=== PATIENT | female | born 1945 | race Caucasian/White ===

== ENCOUNTER 2019-12-04 06:55 | Inpatient (IN) | payer MEDICARE, OTHER ==
[~2019-12-04] VITALS: Ht 165.1 cm; Wt 91.2 kg
[~2019-12-04 06:55] MED LIST: ACET250 PO; ACYCLOVIR5 GM TOP; ALBU90OI61 INH; ASCO500 PO; ASPI81CH PO; ATOR20 PO; ATORVASTATIN CA20 MG; ATORVASTATIN CA20 MG PO; B Complex #11 EACH PO; BETA.05TCA TOP; CELE100 PO; CENTRUM SILVER1 EAC2 PO; CEVIMELINE HCL30 MG PO; CLOB.05TC TOP; EUTHYROX125 MCG PO; Evoxac30 MG PO; FERR325 PO; FURO20 PO; GABA300; HYDR-86; Hydrocodone-Ap1 EA20; LISHYD1012 PO; LISI10 PO; METF500C PO; MONTELUKAST SOD10 MG PO; MULVITMIND PO; Magnesium500 MG PO; OMEP20ER PO; OMEP40CA12; OMEPRAZOLE MAGN20 MG PO; OXAPROZIN PO; POTA10T PO; POTASSIUM GLUCONATE PO; PRAHYD1AE TOP; PRAMIPEXOLE DI1.5 MG PO; Proctosol HC30 GM TOP; Synthroid137 MCG PO; TIZANIDINE HCL4 MG PO; TRAZ100 PO; TREXALL5 MG PO; UBID100 PO; VALA500 PO; VITAMIN B125000 MC1 PO; VITAMIN D22000 UNIT PO; VITAMIN D35000 UNI1 PO; Vitamin D2000 UNIT PO; XARELTO15 MG PO; XARELTO20 MG PO; ZESTORETIC 20-121 EA
--- NOTE | 2019-12-04 08:23 | NUR ---
Ambulatory in Day Surgery. Surgical site prepped with 2% Chlorhexidine cloth wipe. History, Chart, Medications and Allergies reviewed before start of procedure. Lungs clear T/O to Auscultation. Patient confirms NPO status and agrees with scheduled surgery. Patient reports completing Chlorhexadine shower X2 prior to admission to hospital. Pre-Op teaching done. Pt verbalizes understanding.
--- NOTE | 2019-12-04 11:46 | NUR ---
12/04/[address] UNABLE TO COMPLETE PROCEDURE LAPAROSCOPICALLY, CONVERTED TO OPEN RIGHT COLECTOMY.
--- NOTE | 2019-12-04 18:35 | NUR ---
SHIFT SUMMARY PT A&OX4, VSS, 2LNC, CPAP AT BEDSIDE. S/P COLECTOMY, JOHN DRY/INTACT, WNL, PERAZA PATENT & DRAINING YELLOW URINE, STAT LOCK ON, OFF FLOOR. YESENIA ICE CHIPS, DENIES N&V. PAIN: 25 MCG FENT Q1.5-2H. AT BEDSIDE. WILL REPORT TO ONCOMING SESAR RN.
--- NOTE | 2019-12-05 04:12 | NUR ---
TACTICAL DECEPTION PLANS OFFICER SUMMARY Pleasantly confused patient with upper abdominal/epigastic pain not resolving with intermittant fentanyl injections. RISK LEAD started per Dr's order, and patient complained that she was not getting enough pain relief. However, the patients blood pressure dropped to 85/57. health underwriter informed, and warm blankets placed over abd for comfort. LR increased for 2 hours to 200 ml/hr. BP increased to 104/85. Patient rested more comfortably after that. Needed reminding frequently which button was to call staff, and which was RISK LEAD. No change in abdominal dressing or JOHN. Site remains externally dry with Old serosanguinous drainage just over umbilicus. Voiding Clear yellow urine per solorzano catheter.
[2019-12-05 05:08] LABS: BASOPHILS ABSOLUTE AUTO 0.02 K/mm3 (0.00-0.23); BASOPHILS PERCENT AUTO 0 % (0-2); EOSINOPHILS ABSOLUTE AUTO 0.01 K/mm3 (0.00-0.68); EOSINOPHILS PERCENT AUTO 0 % (0-6); Hematocrit 33.1 % (33.0-51.0); IMMATURE GRAN ABSOLUTE AUTO 0.03 K/mm3 (0.00-0.10); IMMATURE GRAN PERCENT AUTO 0 % (0-1); LYMPHOCYTES ABSOLUTE AUTO 1.84 K/mm3 (0.84-5.20); LYMPHOCYTES PERCENT AUTO 19 % (21-46); MONOCYTES ABSOLUTE AUTO 0.72 K/mm3 (0.16-1.47); MONOCYTES PERCENT AUTO 7 % (4-13); Mean Corpuscular HGB 27.9 pg (26.0-34.0); Mean Corpuscular HGB Conc 30.2 g/dL (31.5-36.5); Mean Corpuscular Volume 93 fL (80-100); Mean Platelet Volume 9.8 fL (9.1-12.4); NEUTROPHILS ABSOLUTE AUTO 7.29 K/mm3 (1.96-9.15); NEUTROPHILS PERCENT AUTO 74 % (41-73); Platelet Count 191 K/mm3 (150-400); RDW Coefficient Variation 14.6 % (11.7-14.2); RDW Standard Deviation 49.4 fL (35.1-46.3); Red Blood Cell Count 3.58 M/mm3 (3.80-5.20); White Blood Cell Count 9.91 K/mm3 (4.00-11.30)
[2019-12-05 05:33] LABS: Anion Gap 6 mmol/L (6-16); Blood Urea Nitrogen 11 mg/dL (8-24); Bun/Creatinine Ratio 15.2 (12.0-20.0); CO2, Blood 28 mmol/L (21-32); Calcium, Blood 8.2 mg/dL (8.5-10.1); Chloride, Blood 106 mmol/L (98-108); Creatinine, Blood 0.73 mg/dL (0.40-1.00); Glomerular Filtration Rate >60 (60-); Glucose, Blood 124 mg/dL (70-99); Potassium, Blood 4.3 mmol/L (3.5-5.5); Sodium, Blood 140 mmol/L (136-145)
--- NOTE | 2019-12-05 15:26 | NUR ---
SHIFT SUMMARY PT A&OX4, VSS, 2LNC, BIOX ON. POD1 OPEN COLECTOMY, MIDLINE JOHN DRY/INTACT WNL, EDU TO USE PILLOW FOR SPLINTING ABDOMEN, KPAD IN PLACE. CPAP AT BEDSIDE FOR NOC. STAND PIVOT TO BSC/CHAIR; OOB TO CHAIR T/O SHIFT. VOIDING WELL. TCDB & I.S. EDU & ENC Q1H. YESENIA ICE CHIPS AND POPSICLES, DENIES N&V. PAIN MANAGED WITH DIGITAL EDITOR, PT USES BUTTON WELL; CURRENTLY REPORTS PAIN 4/10 AND TOLERABLE. WILL REPORT TO ONCOMING NOC RN.
--- NOTE | 2019-12-06 04:09 | NUR ---
SHIFT SUMMARY: JASON AROUSES EASILY AND RESPONDS APPROPRIATELY. SHE ELECTED TO SLEEP IN HER CHAIR. SHE DID WEAR HER CPAP DURING THE NIGHT. VSS, NO ACUTE EVENTS OVERNIGHT. SHE REPORTS ADEQUATE PAIN CONTROL WITH THE PULPIT OPERATOR. O2 AT 2 LPM VIA NC. IV FLUIDS INFUSING PER MAR. SHE USES HER CALL LIGHT APPROPRIATELY. SHE IS UP TO THE CHAIR WITH THE CALL LIGHT IN REACH. WILL REPORT TO DAY SHIFT RN.
--- NOTE | 2019-12-06 07:10 | NUR ---
recvd report from previous shift RN Delmy, pt sleeping in chair, in room, call light within reach
--- NOTE | 2019-12-06 11:30 | NUR ---
dr carter roundnawaf on pt; this rn assisted in midline JOHN dressing change WNL
--- NOTE | 2019-12-06 17:00 | NUR ---
friend visiting with pt
--- NOTE | 2019-12-07 05:12 | NUR ---
SHIFT SUMMARY LYING IN CHAIR AT BEDSIDE WITH EYES CLOSED CLOSED. PAIN MANAGED WITH PO PAIN MEDS PER MD ORDERS. INTERMITTENT CONFUSION NOTED. MIDLINE DRESSING AND LAP SITES ARE C/D/I. DENIES PAIN, DISCOMFORT, OR FURTHER NEEDS AT THIS TIME. SAFETY MEASURES IN PLACE. WILL CONTINUE TO MONITOR AND GIVE HAND OFF TO ONCOMING SHIFT USING SBAR DURING BEDSIDE REPORT.
--- NOTE | 2019-12-07 07:00 | NUR ---
RECVD REPORT FROM PREVIOUS SHIFT RN ZACARIAS, PT SITTING UP IN CHAIR, CALL LIGHT WITHIN REACH. A/O X 4, PLEASANT/COOPERATIVE, RATES PAIN AT 4/10
--- NOTE | 2019-12-07 16:40 | NUR ---
shift summary: vss, no acute changes. pt remained a/o x 4, pleasant/cooperative. pt tolerated advancing diet to full liquids with no n/v. Pt rates pain at 3-5/10 with PO medication; ambulating in hallways with her independently, is smiling and cheerful. BM x 2 large, liquid brown stool this shif. Midline incision with JOHN dressing c/d/i. Laparascopic incisions c/d/i.
--- NOTE | 2019-12-08 05:50 | NUR ---
POD 4 S/P OPEN APPY/COLECTOMY. PT VSS T/O NIGHT. JOHN DRESSING INTACT W/NO DRNG; SEAL AND SX INTACT. PT HAD NO C/O N/V, IS PASSING FLATUS. PAIN MGD W/PO PAIN MEDS W/REP RELIEF. PT INDEP IN ROOM, IS USING CALL LIGHT FOR ASSISTANCE. PLAN TO D/C HOME TODAY.
[2019-12-08] MEDS ORDERED: HYDR1TAB94 PO (09:15)
--- NOTE | 2019-12-08 10:12 | NUR ---
discharged to home with / pt ambulating, reports pain controlled, passing flatus. pt verbalizes understanding of how to do dressing change. abd juanpablo intact x3 sites. no redness or drainage at incisions
== END 2019-12-08 10:00 | disposition home or self-care (01) | DRG 330 ==
LOC: ORSCMMR 06:55 → ORD 08:45 → ORSCMMR 08:45 → SURS 13:11 → ORSCMMR 13:11 → SURS 13:50
PROVIDERS: ADMIT Surgery
PROC: 0DTF0ZZ Resection of Right Large Intestine, Open Approach (ICD-10-PCS; principal; 2019-12-04 08:45)
DX: K63.89 Other specified diseases of intestine (principal); K35.20 Acute appendicitis with generalized peritonitis, without abscess; Z86.711 Personal history of pulmonary embolism; I10 Essential (primary) hypertension; E78.5 Hyperlipidemia, unspecified; E03.9 Hypothyroidism, unspecified; K21.9 Gastro-esophageal reflux disease without esophagitis; G47.30 Sleep apnea, unspecified
CPT/HCPCS: 36415; 80048; 85025; 88307; 94660; 94762; A9270; A9270-GY; J0295; J1650; J2250; J2704; J3010; J7120

== ENCOUNTER 2020-01-13 12:44 | Emergency (ER) | payer MEDICARE, OTHER ==
[~2020-01-13] VITALS: Ht 165.1 cm; Wt 87.5 kg
[~2020-01-13 12:44] MED LIST changes: +HYDR1TAB94 PO
[2020-01-13 13:24] LABS: BASOPHILS ABSOLUTE AUTO 0.05 K/mm3 (0.00-0.23); BASOPHILS PERCENT AUTO 1 % (0-2); EOSINOPHILS ABSOLUTE AUTO 0.22 K/mm3 (0.00-0.68); EOSINOPHILS PERCENT AUTO 3 % (0-6); Hematocrit 37.7 % (33.0-51.0); Hemoglobin 11.7 g/dL (11.5-16.0); IMMATURE GRAN ABSOLUTE AUTO 0.02 K/mm3 (0.00-0.10); IMMATURE GRAN PERCENT AUTO 0 % (0-1); LYMPHOCYTES ABSOLUTE AUTO 2.32 K/mm3 (0.84-5.20); LYMPHOCYTES PERCENT AUTO 34 % (21-46); MONOCYTES ABSOLUTE AUTO 0.48 K/mm3 (0.16-1.47); MONOCYTES PERCENT AUTO 7 % (4-13); Mean Corpuscular HGB 28.1 pg (26.0-34.0); Mean Corpuscular Volume 91 fL (80-100); NEUTROPHILS ABSOLUTE AUTO 3.75 K/mm3 (1.96-9.15); NEUTROPHILS PERCENT AUTO 55 % (41-73); Platelet Count 283 K/mm3 (150-400); RDW Coefficient Variation 14.9 % (11.7-14.2); RDW Standard Deviation 49.4 fL (35.1-46.3); Red Blood Cell Count 4.16 M/mm3 (3.80-5.20); White Blood Cell Count 6.84 K/mm3 (4.00-11.30)
[2020-01-13 13:40] LABS: Alanine Aminotransfer (ALT/SGP 22 U/L (12-78); Albumin, Blood 3.5 g/dL (3.4-5.0); Albumin/Globulin Ratio 0.8 (0.8-1.8); Alk Phos 76 U/L (50-136); Anion Gap 5 mmol/L (6-16); Aspartate Aminotrans (AST/SGOT 26 U/L (12-37); Bilirubin, Total 0.3 mg/dL (0.1-1.0); Blood Urea Nitrogen 15 mg/dL (8-24); Bun/Creatinine Ratio 25.6 (12.0-20.0); CO2, Blood 27 mmol/L (21-32); Calcium, Blood 9.2 mg/dL (8.5-10.1); Chloride, Blood 107 mmol/L (98-108); Creatinine, Blood 0.59 mg/dL (0.40-1.00); Globulin, Blood 4.2 g/dL (2.2-4.0); Glomerular Filtration Rate >60 (60-); Glucose, Blood 122 mg/dL (70-99); Potassium, Blood 3.9 mmol/L (3.5-5.5); Sodium, Blood 139 mmol/L (136-145); Total Protein, Blood 7.7 g/dL (6.4-8.2)
[2020-01-13 13:59] LABS: Source, Urine Clean Catch
[2020-01-13 14:01] LABS: Appearance, Urine Clear (Clear); Bilirubin, Urine Neg (Neg); Blood, Urine Neg (Neg); Color, Urine Yellow (P-Yellow); Glucose Qualitative, Urine Neg (Neg); Ketones, Urine Neg (Neg); Leukocyte Esterase, Urine 1+ (Neg); Nitrite, Urine Neg (Neg); Protein, Urine Neg (Neg); Urobilinogen, Urine NORM (Normal)
[2020-01-13 14:11] LABS: Amorphous Light (0-Heavy); Bacteria Few /hpf; Red Blood Cells, Urine Not Seen /hpf (0-2); Squamous Epithelial Cells Few /hpf (Few)
[2020-01-13] MEDS ORDERED: Magnesium Citr296 ML PO (16:37)
== END 2020-01-13 16:45 | disposition home or self-care (01) ==
LOC: ER 12:44
PROVIDERS: Emergency Medicine
DX: K59.00 Constipation, unspecified (principal); E03.9 Hypothyroidism, unspecified; J44.9 Chronic obstructive pulmonary disease, unspecified; Z88.5 Allergy status to narcotic agent; Z91.041 Radiographic dye allergy status; Z79.899 Other long term (current) drug therapy
CPT/HCPCS: 36415; 74176; 80053; 81001; 83690; 85025; 87086; 99284-25

== ENCOUNTER → 2021-01-13 | Outpatient (CLI) | payer MEDICARE, OTHER ==
[~2021-01-13] MED LIST changes: +Magnesium Citr296 ML PO
== END | disposition home or self-care (01) ==
LOC: LAB SHORT 11:32
DX: C44.41 Basal cell carcinoma of skin of scalp and neck (principal)
CPT/HCPCS: 88305

== ENCOUNTER 2021-05-26 10:59 | Day surgery (SDC) | payer MEDICARE, OTHER ==
[~2021-05-26] VITALS: Ht 165.1 cm; Wt 100.1 kg
--- NOTE | 2021-05-26 11:59 | NUR ---
05/26/21 1159 Sujey Dennis 1150 TIME OUT AND SITE CHECK FOR ISB DONE WITH DR MARTINEZ.
--- NOTE | 2021-05-26 12:32 | NUR ---
05/26/21 1232 Felecia Almaraz 1 MG EPI ADDED TO THE FIRST BAG OF LR PER ORDER FOR IRRIGATION.
== END 2021-05-26 14:30 | disposition home or self-care (01) ==
LOC: ORSCSDS 10:59
PROVIDERS: Orthopaedic Surgery
PROC: 0RBK4ZZ Excision of Left Shoulder Joint, Percutaneous Endoscopic Approach (ICD-10-PCS; principal; 2021-05-26 12:30)
DX: M75.42 Impingement syndrome of left shoulder (principal); S46.102A Unspecified injury of muscle, fascia and tendon of long head of biceps, left arm, initial encounter; M19.012 Primary osteoarthritis, left shoulder; I10 Essential (primary) hypertension; G47.33 Obstructive sleep apnea (adult) (pediatric); E03.9 Hypothyroidism, unspecified; M35.00 Sjogren syndrome, unspecified; Z79.899 Other long term (current) drug therapy; E66.01 Morbid (severe) obesity due to excess calories; Z68.36 Body mass index [BMI] 36.0-36.9, adult
CPT/HCPCS: J0171; J0690; J1100; J1885; J2250; J2405; J2704; J3010; J3370; J7050; J7120

== ENCOUNTER 2024-04-22 14:13 | Observation (INO) | payer MEDICARE, OTHER ==
[~2024-04-22] VITALS: Ht 167.6 cm; Wt 8.8 kg
[2024-04-22] MEDS ORDERED: Prinivil10 MG PO (14:48)
[2024-04-22] MEDS ORDERED: EUTHYROX125 MCG PO (14:48)
[2024-04-22] MEDS ORDERED: TRAZ100 PO (14:49)
[2024-04-22] MEDS ORDERED: CEVIMELINE HCL30 MG PO (14:49)
[2024-04-22] MEDS ORDERED: ALBU90OI6 INH (14:50)
[2024-04-22] MEDS ORDERED: Zovirax Cream 5%2 GM TOP (14:50)
[2024-04-22] MEDS ORDERED: Prilosec Otc20 MG PO (14:51)
[2024-04-22] MEDS ORDERED: VALTREX PO (14:51)
[2024-04-22] MEDS ORDERED: CELE100 PO (14:52)
[2024-04-22] MEDS ORDERED: ELIQUIS5 M2 PO (14:53)
[2024-04-22] MEDS ORDERED: FARXIGA5 MG PO (14:53)
[2024-04-22 14:56] LABS: BASOPHILS ABSOLUTE AUTO 0.06 K/mm3 (0.00-0.23); BASOPHILS PERCENT AUTO 1 % (0-2); EOSINOPHILS ABSOLUTE AUTO 0.49 K/mm3 (0.00-0.68); EOSINOPHILS PERCENT AUTO 5 % (0-6); Hematocrit 43.5 % (33.0-51.0); Hemoglobin 14.1 g/dL (11.5-16.0); IMMATURE GRAN ABSOLUTE AUTO 0.03 K/mm3 (0.00-0.10); IMMATURE GRAN PERCENT AUTO 0 % (0-1); LYMPHOCYTES ABSOLUTE AUTO 2.68 K/mm3 (0.84-5.20); LYMPHOCYTES PERCENT AUTO 29 % (21-46); MONOCYTES ABSOLUTE AUTO 0.61 K/mm3 (0.16-1.47); MONOCYTES PERCENT AUTO 7 % (4-13); Mean Corpuscular HGB 29.1 pg (26.0-34.0); Mean Corpuscular HGB Conc 32.4 g/dL (31.5-36.5); Mean Corpuscular Volume 90 fL (80-100); Mean Platelet Volume 10.8 fL (9.1-12.4); NEUTROPHILS ABSOLUTE AUTO 5.35 K/mm3 (1.96-9.15); NEUTROPHILS PERCENT AUTO 58 % (41-73); Platelet Count 238 K/mm3 (150-400); RDW Coefficient Variation 13.2 % (11.7-14.2); RDW Standard Deviation 43.5 fL (35.1-46.3); Red Blood Cell Count 4.85 M/mm3 (3.80-5.20); White Blood Cell Count 9.22 K/mm3 (4.00-11.30)
[2024-04-22 15:16] LABS: Albumin, Blood 3.5 g/dL (3.4-5.0); Albumin/Globulin Ratio 0.9 (0.8-1.8); Bilirubin, Total 0.4 mg/dL (0.1-1.0); Bun/Creatinine Ratio 28.9 (12.0-20.0); Calcium, Blood 9.3 mg/dL (8.5-10.1); Creatinine, Blood 0.76 mg/dL (0.40-1.00); Globulin, Blood 4.1 g/dL (2.2-4.0); Total Protein, Blood 7.6 g/dL (6.4-8.2)
[2024-04-22] MEDS ORDERED: FLU VACC TS2024-25(6MOS UP)/PF 45 MCG/0.5 ML SYRINGE IM SCH (18:20)
[2024-04-22] MEDS ORDERED: TraZODone HCl 100 MG Tab PO SCH (21:00)
[2024-04-22] MEDS ORDERED: Apixaban 5 MG Tab PO SCH (21:00)
[2024-04-22] MEDS ORDERED: CELE100 (21:34)
--- NOTE | 2024-04-22 21:50 | NUR ---
THIS RN CALLED ER AND SPOKE WITH YUNIOR MARRERO FOR REPORT ON JASON CARRASCO COMING TO ROOM 332. RECEIVED REPORT.
--- NOTE | 2024-04-22 22:00 | NUR ---
NEW ADMIT. PATIENT ADMITTED TO ROOM 332 FROM THE ER WITH ACUTE CVA WITH NO NOTED DEFICITS. PATIENT ARRIVED TO ROOM VIA WHEELCHAIR AND 1P ASSIST. PATIENT SELF TRANSFERED TO BED FROM WHEELCHAIR WITH STEADY GAIT. PATIENT ARRIVED TO ROOM IN HER DAY CLOTHES AND HER PURSE. THIS RN TO ASSUME PATIENT CARE.
[2024-04-22 22:07] VITALS: BP 148/74
[2024-04-23 02:53] VITALS: BP 133/69
[2024-04-23] MEDS ORDERED: Levothyroxine Sodium 0.125 MG Tab PO SCH (06:00)
[2024-04-23] MEDS ORDERED: Omeprazole 20 MG CapCR PO SCH (06:00)
--- NOTE | 2024-04-23 07:29 | NUR ---
SHIFT SUMMARY. PATIENT IS A&OX4. CALLS APPROPRIATELY AND IS ABLE TO MAKE HER NEEDS KNOWN. PATIENT ADMITTED FOR ACUTE CVA AND TO HAVE MRI DONE 04/23/24. PATIENT IS INDEPENDENT IN ROOM. NO DEFICITS NOTED. PATIENT REPORTS THE RIGHT SIDE OF HER FACE FEELS WEIRD AND DIFFERENT THEN IT SHOULD. TELE IS ON WITH LEADS IN PLACE PATIENT HAS BEEN RUNNING SINUS SUBHASH-PATIENT DENIES DIZZINESS OR LIGHT HEADEDNESS. PATIENT SLEPT WELL T/O NIGHT WITH RESPIRATIONS EQUAL AND UNLABORED. BED IS LOCKED IN THE LOWEST POSITION WITH CALL LIGHT IN REACH. REPORT GIVEN TO JOSE MARRERO.
[2024-04-23 07:47] VITALS: BP 122/57
[2024-04-23] MEDS ORDERED: ValACYClovir HCL 500 MG Tab PO SCH (09:00)
[2024-04-23] MEDS ORDERED: Atorvastatin 40 MG Tab PO SCH (09:00)
[2024-04-23 09:09] LABS: CHOL/HDL RATIO 5.3; Cholesterol 223 mg/dL (50-200); HDL Cholesterol 42 mg/dL (>39); LDL/HDL RATIO 3.4; Low Density Lipoprotein Chol 144 mg/dL (0-110); Triglycerides 187 mg/dL (30-160); Very Low Density Lipoprot Chol 37 mg/dL (6-32)
[2024-04-23] MEDS ORDERED: ATOR80 PO (15:45)
--- NOTE | 2024-04-23 16:04 | NUR ---
DISCHARGE NOTE PT A&OX4. PT ADMITTED DUE TO ACUTE CVA. PT REPORTS NO PAIN. PT REPORTS SOME NUMBNESS ON FACE. PT HAS SYMMETRICAL FACE. PT MEDS FAXED TO PREFERED PHARMACY. PT SAW PHYSICAL THERAPY TODAY, HAD ECHO ULTRASOUND AND WENT TO MRI FOR IMAGING. EDUCATED PT ON DISCHARGE INSTRUCTIONS AND MEDS. PRINTED OUT EDUCATION ON STROKE PREVENTION AND HEART HEALTHY DIET. PT IV D/C. PT OFF TELE. PT TOOK ALL PERSONAL BELONGINGS. PT WAS AT BEDSIDE. PT CALLED APPROPRIATELY, AND PLEASANT. PT ESCORTED BY RESIDENT PHYSICIAN VIA WHEELCHAIR TO PERSONAL VEHICLE.
== END 2024-04-23 16:02 | disposition home or self-care (01) ==
LOC: ER 14:13 → ERHOLD 14:14 → MEDS 14:14
PROVIDERS: Internal Medicine; Student in an Organized Health Care Education/Training Program; ADMIT Internal Medicine
DX: I63.9 Cerebral infarction, unspecified (principal); I10 Essential (primary) hypertension; E03.9 Hypothyroidism, unspecified; G47.33 Obstructive sleep apnea (adult) (pediatric); E78.5 Hyperlipidemia, unspecified; Z88.5 Allergy status to narcotic agent; Z99.89 Dependence on other enabling machines and devices
CPT/HCPCS: 36415; 70450; 70496; 70498; 70551; 80053; 80061; 83036; 83735; 84484; 85025; 85730; 93005; 93010; 93306; 97112; 97116; 97161; 99285-25; A9270; G0378; Q9967